=== PATIENT | male | born 1995 | race Caucasian/White ===

== ENCOUNTER 2024-06-04 06:35 | Outpatient (OUT) | payer BC, SELFPAY ==
[2024-06-04 07:07] LABS: Basophils Percent Auto 0.9 % (0.2-2.0); Eosinophils Absolute Auto 0.1 10^3/uL (0.0-0.7); Eosinophils Percent Auto 2.8 % (0.9-7.0); Hematocrit 45.3 % (42.0-54.0); Hemoglobin 15.1 g/dL (14.0-18.0); Lymphocytes Absolute Auto 1.2 10^3/uL (1.2-3.8); Lymphocytes Percent Auto 37.2 % (20.5-60.0); Mean Corpuscular HGB Conc 33.3 g/dL (29.9-35.2); Mean Corpuscular Hemoglobin 29.3 pg (25.9-34.0); Mean Platelet Volume 8.9 fL (9.5-13.5); Monocytes Absolute Auto 0.2 10^3/uL (0.3-0.8); Monocytes Percent Auto 7.1 % (1.7-12.0); Neutrophils Absolute Auto 1.7 10^3/uL (1.4-6.5); Platelet Count 240 10^3/uL (150-450); Red Blood Count 5.15 10^6/uL (4.70-6.10); Red Cell Distribution Width 13.1 % (11.0-15.0); White Blood Count 3.2 10^3/uL (4.0-11.0)
[2024-06-04 09:19] LABS: Percent Iron Saturation 23.7 %
[2024-06-04 09:28] LABS: Sodium 141 mmol/L (136-145)
[2024-06-04 09:29] LABS: Alanine Aminotransferase 38 U/L (16-63); Albumin Globulin Ratio 1.3; Albumin Level 4.1 g/dL (3.4-5.0); Alkaline Phosphatase 65 U/L (46-116); Anion Gap 9.2; Aspartate Amino Transferase 18 U/L (15-37); BUN Creatinine Ratio 14.4; Bilirubin Total 0.7 mg/dL (0.2-1.0); Calcium 9.2 mg/dL (8.5-10.1); Carbon Dioxide 31.9 mmol/L (21.0-32.0); Chloride 104 mmol/L (98-107); Estimated GFR (African America >60 (>=60 mL/min/1.73m^2); Estimated GFR (Non-African Ame >60 (>=60 mL/min/1.73m^2); Globulin 3.2 g/dL; Glucose 94 mg/dL (74-106); Potassium 4.1 mmol/L (3.5-5.1); TSH W/ REFLEX FT4 2.722 uIU/mL (0.358-3.740); Total Protein 7.3 g/dL (6.4-8.2)
== END 2024-06-04 06:36 | disposition home or self-care (01) ==
PROVIDERS: PCP Family Medicine; Visit Provider Nurse Practitioner Family
DX: R55 Syncope and collapse (principal)
CPT/HCPCS: 36415; 80053; 82728; 83540; 83550; 84443; 85025

== ENCOUNTER 2024-07-04 15:45 | Outpatient (OUT) | payer BC, SELFPAY ==
[2024-07-04 16:01] LABS: Basophils Percent Auto 0.3 % (0.2-2.0); Eosinophils Percent Auto 0.5 % (0.9-7.0); Immature Granulocytes Abs Auto 0.01 10^3/uL (0.00-0.03); Immature Granulocytes Pct Auto 0.1 % (0.0-0.5); Lymphocytes Percent Auto 11.2 % (20.5-60.0); Mean Corpuscular HGB Conc 34.1 g/dL (29.9-35.2); Mean Corpuscular Hemoglobin 29.8 pg (25.9-34.0); Mean Corpuscular Volume 87.3 fL (80.0-94.0); Mean Platelet Volume 8.9 fL (9.5-13.5); Monocytes Absolute Auto 0.5 10^3/uL (0.3-0.8); Monocytes Percent Auto 5.7 % (1.7-12.0); Neutrophils Absolute Auto 7.2 10^3/uL (1.4-6.5); Neutrophils Percent Auto 82.2 % (43.0-75.0); Platelet Count 269 10^3/uL (150-450); Red Blood Count 5.04 10^6/uL (4.70-6.10); Red Cell Distribution Width 12.7 % (11.0-15.0); White Blood Count 8.8 10^3/uL (4.0-11.0)
--- OUTSIDE RECORDS SUMMARY | 2024-07-04 16:06 | XMS_ITS | CCD ---
Author Organization [facility] Care Team Providers Care Digital Content Coordinator Name Role Phone DR NELSY RIOS Primary Care Unavailable CHASE BARKER Admitting Unavailable CHASE BARKER Attending Unavailable IRIS GALAN Consulting Unavailable Pat Joy Unavailable Nelsy Rios Unavailable Medications Completed/Discontinued Medications Medication Drug Class(es) Dates Sig (Normalized) Sig (Original) triamcinolone acetonide 40 mg/ml injectable suspension (1 source) Corticosteroid Start: 08-04-2022 Kenalog-40 July, 60 mg Problems Active Problems Problem Classification Problem Date Documented Da te Episodic/Chronic E Codes: Other specified and classifiable (1 source) Caught, crushed, jammed, or pinched between moving objects, initial encounter; Translations: [CAUGHT CRUSH/PINCH BTWN MOV OBJ INT] Onset: 09-09-2021 Episodic Immunizations and screening for infectious disease (2 sources) Encounter for immunization; Translations: [Contact with and (suspected) exposure to other viral communicable diseases] Onset: 01-06-2021 Resolved: 01-06-2021 Episodic Open wounds of extremities (4 sources) Laceration without foreign body of left middle finger without damage to nail, initial encounter; Translations: [LAC W/O FB LT MF W/O DMG NAIL INIT] Onset: 09-07-2021 Episodic Other connective tissue disease (1 source) Pain in left finger(s); Translations: [PAIN IN LEFT FINGERS] Onset: 09-09-2021 Episodic Other upper respiratory disease (1 source) Seasonal allergic rhinitis; Translations: [Other seasonal allergic rhinitis] Chronic Other upper respiratory disease (1 source) Other seasonal allergic rhinitis Chronic Past or Other Problems Problem Classification Problem Date Documented Da te Episodic/Chronic Other upper respiratory disease (1 source) Other specified disorders of nose and nasal sinuses; Translations: [Rhinorrhea J34.89] Onset: 01-06-2021 Resolved: 01-06-2021 Episodic Other upper respiratory infections (1 source) Acute upper respiratory infection, unspecified; Translations: [Viral upper respiratory illness J06.9] Onset: 01-06-2021 Resolved: 01-06-2021 Episodic Results Test Name Value Interpretation Reference Range Facil ity COVID Quick Testingon 2020 Result Negative Located Within [facility] Pr [employer] Other RSVon 01-06-2021 RSV Ag IA Ql (Unsp spec) Negative Located Within [facility] Prof [employer] Other Vital Signs Date Time Vital Sign Value Performing Clinician Facility 01-06-2021 11:45-0400 Body height 187.96 cm Pat Cummingsmond Other [facility] Other 01-06-2021 11:45-0400 Body mass index (BMI) [Ratio] 21.82 kg/m2 Pat Benita Other [facility] Other 01-06-2021 11:45-0400 Body temperature 101 [degF] Pat Benita Other [facility] Other 01-06-2021 11:45-0400 Body weight 77.11 kg Pat Cummingsmond Other [facility] Other 01-06-2021 11:45-0400 Respiratory rate 18 /min Pat Benita Other [facility] Other 01-06-2021 11:45-0400 SaO2% (BldA) [Mass fraction] 96 % Pat Benita Other [facility] Other Encounters Encounter Date Encounter Type Care Provider Facility Start: 07-19-2023 End: 07-19-2023 [facility] Work Phone: Start: 07-19-2023 End: 07-19-2023 Patient encounter procedure [facility] Work Phone: Start: 08-04-2022 End: 08-04-2022 ambulatory Nelsy Rios Other [facility] Other Start: 08-04-2022 Nursing evaluation o f patient and report Nelsy Rios [facility] Start: 09-07-2021 End: 09-07-[address] NELSY RIOS Facility: Start: 01-06-2021 (URG) Urgent Care Visit Pat castañeda [facility] [place] Immunizations Immunization Date Immunization Notes Care Provider Myrna perez 01-28-2014 tetanus and diphther ia toxoids, adsorbed, preservative free, for adult use (5 Lf of tetanus toxoid and 2 Lf of diphtheria toxoid) [facility] 01-14-2013 tetanus and diphther ia toxoids, adsorbed, preservative free, for adult use (5 Lf of tetanus toxoid and 2 Lf of diphtheria toxoid) [facility] Payers Date Payer Category Payer Unknown [id number] 1959 Unknown [id number] 1959 Unknown [id number] Self-pay Self Pay [id number] Social History Date Type Detail Facility Unknown if ever smoked [facility] Other Sex Assigned At Sex Assigned At Bir th [facility] Other Start: 11-23-2018 Tobacco smoking status NHIS Never smoked tobacco (finding) [facility] Start: 1995 Sex Assigned At Male F [facility] Evaluation note 08-04-2022 Note Date & Type Note Facility 08-04-2022 Evaluation note Encounter Date Diagnosis Assessment Notes July, Seasonal allergic rhinitis, unspecified trigger (ICD-10 - J30.2) [facility] Other Evaluation note 01-06-2021 Note Date & Type Note Facility 01-06-2021 Evaluation note Encounter Date Diagnosis Assessment Notes Dec, Contact with and (suspected) exposure to other viral communicable diseases (ICD-10 - Z20.828) Dec, Viral upper respiratory illness (ICD-10 - J06.9) Drink plenty fluids, get plenty of rest. Take Tylenol Motrin for aches pains or fevers. Follow-up with your family physician for a PCR Covid test if no improvement in 1 to 2 days. Dec, Rhinorrhea (ICD-10 - J34.89) Dec, Other Additional time spent conducting pre-visit phone call, screening for symptoms, instructions on social distancing, application and removal of PPE, and cleaning of examination room, equipment and supplies was preformed. Patient education given for testing methodology and results. Patient care instructions given in writting by [facility] document. [facility] Other Evaluation note Note Date & Type Note Facility Evaluation note No assessment information availa [facility] Work Phone: History general Narrative - Reported Note Date & Type Note Facility History general Narrative - Reported Type Surgical History pyloric stenosis Located Within [facility] [employer] Other Summary Purpose Family History No Family History Records Found Advance Directives Advance Directive Response Recorded Date/ Time Advance Directives No November 23, 2018 1:05pm Chief Complaint and Reason for Visit Chief Complaint allergy shot Additional Source Comments (unrecognized sect ion and content) No Status Records Found INFORMATION SOURCE (unrecogn ized section and content) DATE CREATED AUTHOR 09/09/2021 [facility] REASON FOR VISIT (unrecogniz ed section and content) #8 [facility] TERAIN, CONGESTION, S ORE THROAT, COUGH, H/Aallergy shot Care Teams (unrecognized sec tion and content) Team Status: Active Member Role Status Dates PHYSICIAN NO FAMILY Primary Care Provider Active Team Status: Inactive Member Role Status Dates PHYSICIAN NO FAMILY Primary Care Provider Active Start: July 19, 2023 End: July 19, 2023 Annalisa Charlton APRN [employer]PRESENTATIVE-[employer] Attending Provider Act samantha Start: July 19, 2023 End: July 19, 2023 Goals (unrecognized section and content) Goals may be documented in a n alternate section FOR RECORDS PERTAINING TO PATIENTS WHO ARE OR HAVE BEEN ENROLLED IN A CHEMICAL DEPENDENCY/SUBSTANCEABUSE PROGRAM, SOME INFORMATION MAY BE OMITTED. This clinical summary was aggregated from multiple sources. Caution should be exercised in using it in the provision of clinical care. This summary normalizes information from multiple sources, and as a consequence, information in this document may materially change the coding, format and clinical context of patient data. In addition, data may be omitted in some cases. CLINICAL DECISIONS SHOULD BE BASED ON THE PRIMARY CLINICAL RECORDS. [facility] [employer] [facility]. provides no warranty or guarantee of the accuracy or completeness of information in this document.
== END 2024-07-04 15:46 | disposition home or self-care (01) ==
PROVIDERS: PCP Family Medicine; Visit Provider Nurse Practitioner Family
DX: R79.89 Other specified abnormal findings of blood chemistry (principal)
CPT/HCPCS: 36415; 85025

== ENCOUNTER 2024-10-16 20:59 | Emergency (ER) | payer BC, SELFPAY ==
[2024-10-16 21:06] VITALS: BP 121/64; PULSE 69; TEMP 36.2; O2SAT 98; BMI 21.8
--- NOTE | 2024-10-16 21:30 | ED_ITS ---
HPI - Wound/Laceration General Chief Complaint: Wound/Laceration Stated Complaint: CUT RIGHT MIDDLE FINGER Time Seen by Provider: 10/16/24 21:28 Source: patient Mode of arrival: walk-in Limitations: no limitations History of Present Illness HPI narrative: This 29-year-old male who is right-hand dominant presents for evaluation of a laceration to his right middle finger on the palmar surface. The laceration is approximately 1 cm on the palmar surface of the MCP. There is no numbness or tingling in his finger. His last tetanus shot was in 2021. No additional injuries or complaints. Related Data Allergies Allergy/AdvReac Type Severity Reaction Status Date / Time No Known Drug Allergies Allergy Verified 10/16/24 21:10 Review of Systems ROS Narrative Vital signs and Nursing Notes reviewed: Patient is afebrile with a normal pulse, normal blood pressure, he is not hypoxic with pulse ox of 98% on room air General: Awake, alert, oriented, no acute distress, lying comfortably on the stretcher HEENT: Normocephalic atraumatic Chest: Lungs are clear to auscultation with good air entry, there is no wheezing rhonchi or rales appreciated no accessory muscle use, patient is speaking in complete sentences-no chest wall tenderness to palpation CVS: Regular rate and rhythm S1-S2, no murmurs rubs or gallops, pulses are brisk and equal bilaterally Extremities: There is an approximately 1 cm laceration to the palmar surface of the right middle finger at the MCP joint. Strength and sensation is intact. No active bleeding noted. Skin: Normal in appearance without rash,pallor, petechiae or purpura Neuro: No focal deficits PFSH PFSH Social History Little interest or pleasure in doing things: not at all Feeling down, depressed, or hopeless: not at all Exam Constitutional Vital Signs, click to edit/add: Last Vital Signs Temp 97.1 F L 10/16/24 21:06 Pulse 69 10/16/24 21:06 Resp 16 10/16/24 21:06 BP 121/64 10/16/24 21:06 Pulse Ox 98 10/16/24 21:06 Course Vital Signs Vital signs: Vital Signs Temperature 97.1 F L 10/16/24 21:06 Pulse Rate 69 10/16/24 21:06 Respiratory Rate 16 10/16/24 21:06 Blood Pressure 121/64 10/16/24 21:06 Pulse Oximetry 98 10/16/24 21:06 Temperature 97.1 F L 10/16/24 21:06 Pulse Rate 69 10/16/24 21:06 Respiratory Rate 16 10/16/24 21:06 Blood Pressure 121/64 10/16/24 21:06 Pulse Oximetry 98 10/16/24 21:06 Discharge Plan Discharge Chief Complaint: Wound/Laceration Clinical Impression: Laceration Patient Disposition: Home, Self-Care Time of Disposition Decision: 22:12 Condition: Good Print Language: [place] Instructions: Care For Your Stitches (ED), Laceration (ED) Additional Instructions: Sutures can be removed in 10 to 12 days. Keep your hand covered with a Band-Aid or other topical dressing. Use bacitracin once or twice daily when changing the Band-Aid. Return to the emergency department for redness, swelling, fever, streaks up your arms or any concerns. Referrals: Nelsy Rios MD [Primary Care Provider, Family Practice] - 1 week Procedures ED Procedure Instructions Procedures Procedures: Procedure note: Laceration repair; the patient's hand was soaked in warm water with Hibiclens, wound edges were infiltrated with 1% lidocaine. When anesthesia was obtained, 3, 3-0 Ethilon sutures were placed into the laceration with good wound edge approximation. Patient tolerated procedure well and a bacitracin dressing was applied by the nursing staff.
[2024-10-16] MEDS: BACITRACIN 0.9 GM PACKET 1 PACKET TOPICAL (21:50)
[2024-10-16] MEDS: LIDOCAINE HCL 1% 100 MG/10 ML MDV INJ (21:50)
--- OUTSIDE RECORDS SUMMARY | 2024-10-16 22:04 | XMS_ITS | CCD ---
Author Organization [facility] Inform ion Partnership [facility] Care Team Providers [facility] Attendant Name Role Phone DR NELSY RIOS Primary Care Unavailable CHASE BARKER Admitting Unavailable HCASE BARKER Attending Unavailable IRIS GALAN Consulting Unavailable Pat Joy Unavailable Nelsy Rios Unavailable Nelsy Rios MD Primary Care Provider Shravan Reyna MD Attending Provider Nelsy iRos MD Primary Care Provider Annalisa [place] APRN Attending Provider Rosette Pedro APRN Attending Provider Shravan Reyna MD Attending Provider Nelsy Rios MD Attending Provider Shravan Reyna Admitting Cristel Reyna, Shravan Keane Attending Nelsy Brown Primary Care Unavailable Shravan Reyna Admitting Cristel Reyna, Shravan Keane Attending Nelsy Brown Primary Care Unavailable Medications Current Medications Medication Drug Class(es) Dates Sig (Normalized) Sig (Original) [place] (No Known Home Meds) (3 sources) Start: 08-01-2024 [place] (No Known Home Meds) Active August 01, 2024 12:00am Completed/Discontinued Medications Medication Drug Class(es) Dates Sig (Normalized) Sig (Original) amoxicillin 500 mg oral capsule (4 sources) Penicillin-class Antibacterial Start: 06-16-2024 End: 07-07-2024 take 1 capsule by mouth every twelve hours Amoxicillin 500 mg capsule Discontinued 500 MG PO Every 12 hours 13 01June 16, 2024 12:00am July 07, 2024 1:53pm cefdinir 300 mg oral capsule (4 sources) Cephalosporin Antibacterial Start: 07-07-2024 End: 07-19-2024 take 1 capsule by mouth every twelve hours Cefdinir 300 mg capsule Discontinued 300 MG PO Every 12 hours 13 01July 07, 2024 12:00am July 19, 2024 9:48am triamcinolone acetonide 40 mg/ml injectable suspension (1 [...] (1 source) Other seasonal allergic rhinitis Chronic Other upper respiratory disease (4 sources) Allergic rhinitis; Translations: [Allergic rhinitis, unspecified] 08-02-2024 Chronic Other upper respiratory disease (2 sources) Allergic rhinitis, unspecified; Translations: [Allergic rhinitis, cause unspecified] 08-02-2024 Chronic Other upper respiratory infections (12 sources) Acute upper respiratory infection, unspecified; Translations: [Streptococcal sore throat] Onset: 01-06-2021 Resolved: 01-06-2021 Episodic Syncope (15 sources) Syncope; Translations: [Syncope and collapse] Onset: 07-19-2024 06-03-2024 Episodic Past or Other Problems Problem Classification Problem Date Documented Da te Episodic/Chronic Other upper respiratory disease (1 source) Other specified disorders of nose and nasal sinuses; Translations: [Rhinorrhea J34.89] Onset: 01-06-2021 Resolved: 01-06-2021 Episodic Results Test Name Value Interpretation Reference Range Facility [facility] echo transthoracicon [facility] echo transthoracic [facility] [place] [address] Echocardiogram Signed Patient: Rachelle Arellano MR#: [id number] 56 : 1995 Acct:[id number] Age/Sex: 29 / M ADM Date: 08/30/24 Loc: Room: Type: [facility] Attending Dr: Shravan Reyna MD Ordering Provider: Shravan Reyna MD Date of Service: 08/30/2409/19/947 [facility] echo transthoracic: R55 - Syncope and collapse Copies to: Shravan Reyna MD G Patient Location: : 1995 Gender: Male (MM/DD/YYYY) Age: 29 Years Ordering Physician: Shravan Reyna Height: 74 in Weight: 170.003 lb Performed By: BELLA Singh BSA: 2.03 m2 BP: 136 / 82 mmHg HR: 53 bpm Reason For Study: R55 - Syncope and collapse History: COVID + + Interpretation Summary Ejection Fraction = 55-60%. The left ventricular size and thickness are normal. The left ventricular wall motion is normal. A variety of Doppler measurements indicate normal left ventricular diastolic function. There is trace tricuspid regurgitation. There is no comparison study available. Procedure/Quality: A two-dimensional transthoracic echocardiogram was performed. The study was technically good in quality. Left Ventricle: The left ventricular size and thickness are normal. Ejection Fraction = 55-60%. A variety of Doppler measurements indicate normal left ventricular diastolic function. The left ventricular wall motion is normal. Left Atrium: The left atrium appears normal in size. Right Atrium: The right atrium appears normal in size. Right Ventricle: The right ventricle is normal in size and function. Aortic Valve: The aortic valve is normal in structure. No hemodynamically significant valvular aortic stenosis. No aortic regurgitation is present. Mitral Valve: The mitral valve is normal in structure. No significant mitral valve stenosis. There is no mitral regurgitation noted. Tricuspid Valve: The tricuspid valve is normal in structure. There is trace tricuspid regurgitation. Pulmonic Valve: The pulmonic valve is not well visualized. Trace pulmonic valvular regurgitation. Arteries: The aortic root is normal size. Pericardium/Pleura: No pericardial effusion seen. IVC/Hepatic Veins: Mildly dilated inferior vena cava. MMode/2D Measurements Calculations IVSd (0.7-1.1 cm): 0.83 cm LVIDd (3.7-5.4 cm): 5.1 cm LVPWd (0.7-1.1 cm): 0.96 cm LVIDs (2.3-3.6 cm): 3.0 cm LA dimension (2.3-4.0 cm): 2.6 Ao root diam (2.0-3.2 cm): 3.0 cm cm FS: 41.9 % Ao root area: 7.3 cm2 EDV(Teich): 122.7 ml LAV(MOD-sp2): 25.8 ml ESV(Teich): 33.7 ml LAV(MOD-sp4): 22.1 ml EF(Teich): 72.6 % LA A2 area: 12.3 cm2 LA A4 area: 13.1 cm2 LA length (vol): 5.5 cm LA vol: 25.1 ml LA vol index: 12.4 ml/m2 Doppler Measurements Calculations MV E max laina: 87.8 cm/sec Ao V2 max: 130.3 cm/sec MV A max laina: 62.1 cm/sec Ao max P.8 mmHg MR max laina: 278.9 cm/sec Ao mean P.3 mmHg MV V2 VTI: 40.8 cm Ao V2 mean: 85.7 cm/sec MV P1/2t: 86.7 msec Ao V2 VTI: 27.4 cm MV dec time: 0.30 sec MV dec slope: 363.8 cm/sec?? E/E' lat: 4.2 E/E' med: 6.0 TV max P.0 mmHg LV V1 max: 98.1 cm/sec TR max laina: 285.0 cm/sec LV V1 max P.9 mmHg TR max P.5 mmHg LV V1 mean: 65.3 cm/sec RAP systole: 10.0 mmHg LV V1 mean P.97 mmHg LV V1 VTI: 20.9 cm + + + + + --------+ + : Electronically : : signed by: Shravan : : : : Maribell : : : : on: 08/31/2024, : : : : 2:58 PM : + --------+ + Transcribed By: SCV Performed At: 08/30/24 0173 Signed By: Shravan Reyna MD 08/31/24 1458 Normal [facility] FPG ECG *CARDIOLOGY ONLY*on 07-19-2024 FPG ECG *CARDIOLOGY ONLY* [facility] [address] [place] [address] Electrocardiograph Report Signed Patient: Rachelle Arellano MR#: [id number] 56 : 1995 Acct:[id number] Age/Sex: 29 / M ADM Date: 07/19/24 Loc: EKGCARDIO Room: Type: [facility] Attending Dr: Shravan Reyna MD Ordering Provider: Shravan Reyna MD Date of Service: 07/19/24 ECG/FPG ECG *CARDIOLOGY ONLY*: R55 - Syncope and collapse Copies to: Test Reason : Blood Pressure : */* mmHG Vent. Rate : 61 BPM Atrial Rate : 61 BPM P-R Int : 142 ms QRS Dur : 114 ms QT Int : 388 ms P-R-T Axes : 40 67 54 degrees QTcB Int : 390 ms Normal sinus rhythm with sinus arrhythmia Incomplete right bundle branch block Borderline ECG No previous ECGs available Confirmed by Shravan Reyna ([id number]) on 07/19/2024 11:45:55 AM Referred By: Electronically Signed By: Shravan Reyna Transcribed By: MUS Signed By Shravan Reyna MD 07/19/24 1145 Normal [facility] No Panel InformationOrdered By: Rosette Pedro on 07-07-2024 Quick Strep (POC) [facility] Basophils Auto (Bld) [#/Vol] on 07-04-2024 Basophils (Bld) [#/Vol] Automated basophil count 0.0-0.1 [facility] Basophils (Bld) [#/Vol] 0.0 10 3/uL 0.0-0.1 [facility] Basophils/100 WBC Auto (Bld) on 07-04-2024 Basophils/100 WBC (Bld) Automated basophil % 0.2-2.0 [facility] Basophils/100 WBC (Bld) 0.3 % 0.2-2.0 [facility] Eosinophils/100 WBC Auto (Bl d)on 07-04-2024 Eosinophils/100 WBC (Bld) Automated eosinophil % Low 0.9-7.0 [facility] Eosinophils/100 WBC (Bld) 0.5 % Low 0.9-7.0 [facility] Erythrocyte distribution wid th Auto (RBC) [Ratio]on 07-04-2024 Erythrocyte distribution width (RBC) [Ratio] Erythrocyte distribution width [Ratio] by Automated count 11.0-15.0 [facility] Erythrocyte distribution width (RBC) [Ratio] 12.7 % 11.0-15.0 [facility] Hematocrit Auto (Bld) [Volum e fraction]on 07-04-2024 Hematocrit (Bld) [Volume fraction] Hematocrit [Volume Fraction] of Blood by Automated count 42.0-54.0 [facility] Hematocrit (Bld) [Volume fraction] 44.0 % 42.0-54.0 [facility] Hemoglobin [Mass/volume] in Bloodon 07-04-2024 Hemoglobin (Bld) [Mass/Vol] Hemoglobin [Mass/volume] in Blood 14.0-18.0 [facility] Hemoglobin (Bld) [Mass/Vol] 15.0 g/dL 14.0-18.0 [facility] Laboratory - Hematology and Cell countson 07-04-2024 Immature granulocytes/100 WBC (Bld) 0.1 % 0.0-0.5 [facility] Leukocytes [#/volume] correc natasha for nucleated erythrocytes in Blood by Automated counon 07-04-2024 WBC corrected for nucl RBC Auto (Bld) [#/Vol] Leukocytes [#/volume] corrected for nucleated erythrocytes in Blood by Automated coun .0-11.0 [facility] WBC corrected for nucl RBC Auto (Bld) [#/Vol] 8.8 10 3/uL 4.0-11.0 [facility] Lymphocytes Auto (Bld) [#/Vo l]on 07-04-2024 Lymphocytes (Bld) [#/Vol] Lymphocytes [#/volume] in Blood by Automated count Low 1.2-3.8 [facility] Lymphocytes (Bld) [#/Vol] 1.0 10 3/uL Low 1.2-3.8 [facility] Lymphocytes/100 WBC Auto (Bl d)on 07-04-2024 Lymphocytes/100 WBC (Bld) Lymphocytes/100 leukocytes in Blood by Automated count Low 20.5-60.0 [facility] Lymphocytes/100 WBC (Bld) 11.2 % Low 20.5-60.0 [facility] MCH Auto (RBC) [Entitic mass ]on 07-04-2024 MCH (RBC) [Entitic mass] MCH [Entitic mass] by Automated count 25.9-34.0 [facility] MCH (RBC) [Entitic mass] 29.8 pg 25.9-34.0 [facility] MCHC Auto (RBC) [Mass/Vol]on 07-04-2024 MCHC (RBC) [Mass/Vol] MCHC [Mass/volume] by Automated count 29.9-35.2 [facility] MCHC (RBC) [Mass/Vol] 34.1 g/dL 29.9-35.2 [facility] MCV Auto (RBC) [Entitic vol] on 07-04-2024 MCV (RBC) [Entitic vol] MCV [Entitic volume] by Automated count 80.0-94.0 [facility] MCV (RBC) [Entitic vol] 87.3 fL 80.0-94.0 [facility] Monocytes Auto (Bld) [#/Vol] on 07-04-2024 Monocytes (Bld) [#/Vol] Automated blood monocyte count 0.3-0.8 [facility] Monocytes (Bld) [#/Vol] 0.5 10 3/uL 0.3-0.8 [facility] Monocytes/100 WBC Auto (Bld) on 07-04-2024 Monocytes/100 WBC (Bld) Automated monocyte % 1.7-12.0 [facility] Monocytes/100 WBC (Bld) 5.7 % 1.7-12.0 [facility] Neutrophils Auto (Bld) [#/Vo l]on 07-04-2024 Neutrophils (Bld) [#/Vol] Neutrophils [#/volume] in Blood by Automated count High 1.4-6.5 [facility] Neutrophils (Bld) [#/Vol] 7.2 10 3/uL High 1.4-6.5 [facility] Neutrophils/100 WBC Auto (Bl d)on 07-04-2024 Neutrophils/100 WBC (Bld) Automated neutrophil % High 43.0-75.0 [facility] Neutrophils/100 WBC (Bld) 82.2 % High 43.0-75.0 [facility] No Panel Informationon 07-04 Eosinophils # (Auto) 0.0 10 3/uL 0.0-0.7 [facility] Immature Granulocyte # (Auto) 0.01 10 3/uL 0.00-0.03 [facility] Platelet mean volume Auto (B ld) [Entitic vol]on 07-04-2024 Platelet mean volume (Bld) [Entitic vol] Platelet mean volume [Entitic volume] in Blood by Automated count Low 9.5-13.5 [facility] Platelet mean volume (Bld) [Entitic vol] 8.9 fL Low 9.5-13.5 [facility] Platelets Auto (Bld) [#/Vol] on 07-04-2024 Platelets (Bld) [#/Vol] Platelets [#/volume] in Blood by Automated count 150-450 [facility] Platelets (Bld) [#/Vol] 269 10 3/uL 150-450 [facility] RBC Auto (Bld) [#/Vol]on RBC (Bld) [#/Vol] Erythrocytes [#/volume] in Blood by Automated count 4.70-6.10 [facility] RBC (Bld) [#/Vol] 5.04 10 6/uL 4.70-6.[address] [facility] No Panel InformationOrdered By: Kaley Coyne on 06-16-2024 Quick Strep (POC) [facility] Basophils Auto (Bld) [#/Vol] on 06-04-2024 Basophils (Bld) [#/Vol] Automated basophil count 0.0-0.1 [facility] Basophils/100 WBC Auto (Bld) on 06-04-2024 Basophils/100 WBC (Bld) Automated basophil % 0.2-2.0 [facility] Eosinophils/100 WBC Auto (Bl d)on 06-04-2024 Eosinophils/100 WBC (Bld) Automated eosinophil % 0.9-7.0 [facility] Erythrocyte distribution wid th Auto (RBC) [Ratio]on 06-04-2024 Erythrocyte distribution width (RBC) [Ratio] Erythrocyte distribution width [Ratio] by Automated count 11.0-15.0 [facility] Estimated glomerular filtrat ion rate (GFR) non- Americanon 06-04-2024 GFR/1.73 sq M.predicted among non-blacks MDRD (S/P/Bld) [Vol rate/Area] Estimated glomerular filtration rate (GFR) non- >=60 mL/min/1.73m 2 [facility] Globulin Calc (S) [Mass/Vol] on 06-04-2024 Globulin (S) [Mass/Vol] Serum globulin measurement by calculation (mass/volume) [facility] Hematocrit Auto (Bld) [Volum e fraction]on 06-04-2024 Hematocrit (Bld) [Volume fraction] Hematocrit [Volume Fraction] of Blood by Automated count 42.0-54.0 [facility] Hemoglobin [Mass/volume] in Bloodon 06-04-2024 Hemoglobin (Bld) [Mass/Vol] Hemoglobin [Mass/volume] in Blood 14.0-18.0 [facility] Iron binding capacity [Mass/ volume] in Serum or Plasmaon 06-04-2024 Iron binding capacity [Mass/Vol] Iron binding capacity [Mass/volume] in Serum or Plasma 250.0-450.0 [facility] Iron saturation [Mass Fracti on] in Serum or Plasmaon 06-04-2024 Iron saturation [Mass fraction] Iron saturation [Mass Fraction] in Serum or Plasma [facility] Laboratory - Chemistry and C hemistry - challengeon 06-04-2024 Albumin [Mass/Vol] 4.1 g/dL 3.4-5.0 [facility] ALP [Catalytic activity/Vol] 65 U/L 46-116 [facility] ALT [Catalytic activity/Vol] 38 U/L 16-63 [facility] AST [Catalytic activity/Vol] 18 U/L 15-37 [facility] Bilirubin [Mass/Vol] 0.7 mg/dL 0.2-1.0 [facility] Calcium [Mass/Vol] 9.2 mg/dL 8.5-10.1 [facility] Chloride [Moles/Vol] 104 mmol/L 98-107 [facility] CO2 [Moles/Vol] 31.9 mmol/L 21.0-32.0 [facility] Creatinine [Mass/Vol] 0.90 mg/dL 0.70-1.30 [facility] Ferritin [Mass/Vol] 42.0 ng/mL 26.0-388.[address] [facility] GFR/1.73 sq M.predicted MDRD (S/P/Bld) [Vol rate/Area] mL/min/{1.73_m2} >=60 mL/min/1.73m 2 [facility] Glucose [Mass/Vol] 94 mg/dL 74-106 [facility] Iron [Mass/Vol] 88.0 ug/dL 65.0-175.0 [facility] Potassium [Moles/Vol] 4.1 mmol/L 3.5-5.1 [facility] Protein [Mass/Vol] 7.3 g/dL 6.4-8.2 [facility] Sodium [Moles/Vol] 141 mmol/L 136-145 [facility] TSH Qn 2.722 m[IU]/L 0.358-3.740 [facility] Urea nitrogen [Mass/Vol] 13.0 mg/dL 7.0-18.0 [facility] Urea nitrogen/Creatinine [Mass ratio] 14.4 mg/mg [facility] Laboratory - Hematology and Cell countson 06-04-2024 Immature granulocytes/100 WBC (Bld) 0.0 % 0.0-0.5 [facility] Leukocytes [#/volume] correc natasha for nucleated erythrocytes in Blood by Automated counon 06-04-2024 WBC corrected for nucl RBC Auto (Bld) [#/Vol] Leukocytes [#/volume] corrected for nucleated erythrocytes in Blood by Automated coun Low 4.0-11.0 [facility] Lymphocytes Auto (Bld) [#/Vo l]on 06-04-2024 Lymphocytes (Bld) [#/Vol] Lymphocytes [#/volume] in Blood by Automated count 1.2-3.8 [facility] Lymphocytes/100 WBC Auto (Bl d)on 06-04-2024 Lymphocytes/100 WBC (Bld) Lymphocytes/100 leukocytes in Blood by Automated count 20.5-60.0 [facility] MCH Auto (RBC) [Entitic mass ]on 06-04-2024 MCH (RBC) [Entitic mass] MCH [Entitic mass] by Automated count 25.9-34.0 [facility] MCHC Auto (RBC) [Mass/Vol]on 06-04-2024 MCHC (RBC) [Mass/Vol] MCHC [Mass/volume] by Automated count 29.9-35.2 [facility] MCV Auto (RBC) [Entitic vol] on 06-04-2024 MCV (RBC) [Entitic vol] MCV [Entitic volume] by Automated count 80.0-94.0 [facility] Monocytes Auto (Bld) [#/Vol] on 06-04-2024 Monocytes (Bld) [#/Vol] Automated blood monocyte count Low 0.3-0.8 [facility] Monocytes/100 WBC Auto (Bld) on 06-04-2024 Monocytes/100 WBC (Bld) Automated monocyte % 1.7-12.0 [facility] Neutrophils Auto (Bld) [#/Vo l]on 06-04-2024 Neutrophils (Bld) [#/Vol] Neutrophils [#/volume] in Blood by Automated count 1.4-6.5 [facility] Neutrophils/100 WBC Auto (Bl d)on 06-04-2024 Neutrophils/100 WBC (Bld) Automated neutrophil % 43.0-75.0 [facility] No Panel Informationon 06-04 Eosinophils # (Auto) 0.1 10 3/uL 0.0-0.7 [facility] Immature Granulocyte # (Auto) 0.00 10 3/uL 0.00-0.03 [facility] Platelet mean volume Auto (B ld) [Entitic vol]on 06-04-2024 Platelet mean volume (Bld) [Entitic vol] Platelet mean volume [Entitic volume] in Blood by Automated count Low 9.5-13.5 [facility] Platelets Auto (Bld) [#/Vol] on 06-04-2024 Platelets (Bld) [#/Vol] Platelets [#/volume] in Blood by Automated count 150-450 [facility] RBC Auto (Bld) [#/Vol]on RBC (Bld) [#/Vol] Erythrocytes [#/volume] in Blood by Automated count 4.70-6.10 [facility] Serum or plasma albumin/glob ulin mass ratioon 06-04-2024 Albumin/Globulin [Mass ratio] Serum or plasma albumin/globulin mass ratio [facility] Serum or plasma anion gap de terminationon 06-04-2024 Anion gap [Moles/Vol] Serum or plasma anion gap determination [facility] COVID Quick Testingon 2020 Result Negative [employer] [facility] [employer] Other RSVon 01-06-2021 RSV Ag IA Ql (Unsp spec) Negative [facility] [employer] Other Vital Signs Date Time Vital Sign Value Performing Clinician Facility 09-26-2024 16:04-0400 Body height 185.42 cm Nelsy Rios MD Work Phone: [facility] 09-26-2024 16:04-0400 Body mass index (BMI) [Ratio] 21.6 kg/m2 Nelsy Rios MD Work Phone: [facility] 09-26-2024 16:04-0400 Body weight 74.38 kg Nelsy Rios MD Work Phone: [facility] 09-26-2024 16:04-0400 Diastolic blood pressure 74 mm[Hg] Nelsy Rios MD Work Phone: [facility] 09-26-2024 16:04-0400 Heart rate 78 /min Nelsy Rios MD Work Phone: [facility] 09-26-2024 16:04-0400 Respiratory rate 16 /min Nelsy Rios MD Work Phone: [facility] 09-26-2024 16:04-0400 SaO2% (BldA) [Mass fraction] 97 % Nelsy Rios MD Work Phone: [facility] 09-26-2024 16:04-0400 Systolic blood pressure 128 mm[Hg] Nelsy Rios MD Work Phone: [facility] 08-02-2024 08:40-0400 Body height 185.42 cm Nelsy Rios MD Work Phone: [facility] 08-02-2024 08:40-0400 Body mass index (BMI) [Ratio] 23.1 kg/m2 Nelsy Rios MD Work Phone: [facility] 08-02-2024 08:40-0400 Body weight 79.54 kg Nelsy Rios MD Work Phone: [facility] 08-02-2024 08:40-0400 Diastolic blood pressure 82 mm[Hg] Nelsy Rios MD Work Phone: [facility] 08-02-2024 08:40-0400 Heart rate 93 /min Nelsy Rios MD Work Phone: [facility] 08-02-2024 08:40-0400 Systolic blood pressure 127 mm[Hg] Nelsy Rios MD Work Phone: [facility] 07-19-2024 09:56-0400 Diastolic blood pressure 78 mm[Hg] Nelsy Rios MD Work Phone: [facility] 07-19-2024 09:56-0400 Heart rate 54 /min Nelsy Rios MD Work Phone: [facility] 07-19-2024 09:56-0400 Systolic blood pressure 128 mm[Hg] Nelsy Rios MD Work Phone: [facility] 07-19-2024 09:54-0400 Body height 185.42 cm Nelsy Rios MD Work Phone: [facility] 07-19-2024 09:54-0400 Body mass index (BMI) [Ratio] 23.2 kg/m2 Nelsy Rios MD Work Phone: [facility] 07-19-2024 09:54-0400 Body weight 79.83 kg Nelsy Rios MD Work Phone: [facility] 07-19-2024 09:54-0400 Respiratory rate 18 /min Nelsy Rios MD Work Phone: [facility] 07-19-2024 09:54-0400 SaO2% (BldA) [Mass fraction] 98 % Nelsy Rios MD Work Phone: [facility] 07-07-2024 13:56-0400 Body height 187.96 cm Nelsy Rios MD Work Phone: [facility] 07-07-2024 13:56-0400 Body mass index (BMI) [Ratio] 22.1 kg/m2 Nelsy Rios MD Work Phone: [facility] 07-07-2024 13:56-0400 Body temperature 98.1 [degF] Nelsy Rios MD Work Phone: [facility] 07-07-2024 13:56-0400 Body weight 78.01 kg Nelsy Rios MD Work Phone: [facility] 07-07-2024 13:56-0400 Diastolic blood pressure 75 mm[Hg] Nelsy Rios MD Work Phone: [facility] 07-07-2024 13:56-0400 Heart rate 103 /min Nelsy Rios MD Work Phone: [facility] 07-07-2024 13:56-0400 Respiratory rate 18 /min Nelsy Rios MD Work Phone: [facility] 07-07-2024 13:56-0400 SaO2% (BldA) [Mass fraction] 95 % Nelsy Rios MD Work Phone: [facility] 07-07-2024 13:56-0400 Systolic blood pressure 119 mm[Hg] Nelsy Rios MD Work Phone: [facility] 06-16-2024 11:40-0400 Body height 187.96 cm Nelsy Rios MD Work Phone: [facility] 06-16-2024 11:40-0400 Body mass index (BMI) [Ratio] 22.1 kg/m2 Nelsy Rios MD Work Phone: [facility] 06-16-2024 11:40-0400 Body temperature 98.1 [degF] Nelsy Rios MD Work Phone: [facility] 06-16-2024 11:40-0400 Body weight 78.24 kg Nelsy Rios MD Work Phone: [facility] 06-16-2024 11:40-0400 Diastolic blood pressure 85 mm[Hg] Nelsy Rios MD Work Phone: [facility] 06-16-2024 11:40-0400 Heart rate 108 /min Nelsy Rios MD Work Phone: [facility] 06-16-2024 11:40-0400 Respiratory rate 16 /min Nelsy Rios MD Work Phone: [facility] 06-16-2024 11:40-0400 SaO2% (BldA) [Mass fraction] 97 % Nelsy Rios MD Work Phone: [facility] 06-16-2024 11:40-0400 Systolic blood pressure 131 mm[Hg] Nelsy Rios MD Work Phone: [facility] 06-03-2024 15:36-0400 Body height 187.96 cm Nelsy Rios MD Work Phone: [facility] 06-03-2024 15:36-0400 Body mass index (BMI) [Ratio] 22.9 kg/m2 Nelsy Rios MD Work Phone: [facility] 06-03-2024 15:36-0400 Body temperature 95.1 [degF] Nelsy Rios MD Work Phone: [facility] 06-03-2024 15:36-0400 Body weight 81.19 kg Nelsy Rios MD Work Phone: [facility] 06-03-2024 15:36-0400 Diastolic blood pressure 64 mm[Hg] Nelsy Rios MD Work Phone: [facility] 06-03-2024 15:36-0400 Heart rate 63 /min Nelsy Rios MD Work Phone: [facility] 06-03-2024 15:36-0400 SaO2% (BldA) [Mass fraction] 96 % Nelsy Rios MD Work Phone: [facility] 06-03-2024 15:36-0400 Systolic blood pressure 112 mm[Hg] Nelsy Rios MD Work Phone: [facility] 01-06-2021 11:45-0400 Body height 187.96 cm Pat Joy Other [employer] [facility] [employer] Other 01-06-2021 11:45-0400 Body mass index (BMI) [Ratio] 21.82 kg/m2 Pat Cummingsmond Other Robert Applebaum MD Other 01-06-2021 11:45-0400 Body temperature 101 [degF] Pat Joy Other Robert Applebaum MD Other 01-06-2021 11:45-0400 Body weight 77.11 kg Pat Joy Other Robert Applebaum MD Other 01-06-2021 11:45-0400 Respiratory rate 18 /min Pat Cmumingsmond Other Robert Applebaum MD Other 01-06-2021 11:45-0400 SaO2% (BldA) [Mass fraction] 96 % Pat Cummingsmond Other Robert Applebaum MD Other Encounters Encounter Date Encounter Type Care Provider Facility Start: 09-26-2024 End: 09-26-2024 ambulatory Nelsy Rios MD Work Phone: [facility] Work Phone: Start: 09-26-2024 End: 09-26-2024 Patient encounter procedure Shravan Reyna MD -[facility] Work Phone: Start: 08-30-2024 End: 08-30-2024 Patient encounter procedure Nelsy Rios MD Work Phone: [facility] Work Phone: Start: 08-30-2024 End: 08-30-2024 ambulatory Nelsy Rios MD Work Phone: [facility] Work Phone: Start: 08-02-2024 End: 08-02-2024 ambulatory Nelsy Rios MD Work Phone: [facility] Work Phone: Start: 08-02-2024 End: 08-02-2024 Encounter for general adult medical examination without abnormal findings Nelsy Rios MD Work Phone: [facility] Start: 08-02-2024 End: 08-02-2024 Patient encounter procedure Nelsy Rios MD Work Phone: [facility] Physician [facility] Work Phone: Start: 08-02-2024 End: 08-02-2024 Patient encounter status Nelsy Rios MD [facility] Start: 07-19-2024 End: 07-19-2024 ambulatory Nelsy Rios MD Work Phone: [facility] Work Phone: Start: 07-19-2024 End: 07-19-2024 Patient encounter procedure Nelsy Rios MD Work Phone: [facility] Physician [facility] Work Phone: Start: 07-07-2024 End: 07-07-2024 Patient encounter procedure Nelsy Rios MD Work Phone: [facility] Physician [facility] [place] Work Phone: Start: 07-04-2024 Non-patient / Non-visit Nelsy Rios MD Work Phone: [facility] Work Phone: Start: 06-16-2024 End: 06-16-2024 Patient encounter procedure Nelsy Rios MD Work Phone: [facility] [place] Work Phone: Start: 06-04-2024 Non-patient / Non-visit Nelsy Rios MD Work Phone: [facility] Work Phone: Start: 06-03-2024 End: 06-03-2024 Patient encounter procedure Nelsy Rios MD Work Phone: [facility] Work Phone: Start: 07-19-2023 End: 07-19-2023 ambulatory [facility] Work Phone: Start: 07-19-2023 End: 07-19-2023 Patient encounter procedure [facility] Work Phone: Start: 08-04-2022 End: 08-04-2022 ambulatory Nelsy Rios Other [facility] [employer] Other Start: 08-04-2022 Nursing evaluation o f patient and report Nelsy Rios [facility] Start: 09-07-2021 End: 09-07-[address] NELSY RIOS Facility: Start: 01-06-2021 (URG) Urgent Care Visit Pat castañeda [facility] [place] Procedures Date Procedure Procedure Detail Performing Clinician Start: 07-07-2024 Quick Strep (POC) Mare Rios MD Work Phone: Start: 06-16-2024 Quick Strep (POC) Mare Rios MD Work Phone: Plan of Treatment Date Care Activity Detail Author Comprehensive metabo lic 2000 panel - Serum or Plasma [facility] enter US Heart Transthoracic [facility] Immunizations Immunization Date Immunization Notes Care Provider Fa cility 01-28-2014 tetanus and diphther ia toxoids, adsorbed, preservative free, for adult use (5 Lf of tetanus toxoid and 2 Lf of diphtheria toxoid) [facility] 01-14-2013 tetanus and diphther ia toxoids, adsorbed, preservative free, for adult use (5 Lf of tetanus toxoid and 2 Lf of diphtheria toxoid) [facility] Payers Date Payer Category Payer Self-pay [id number] 1995 Unknown [id number] 1959 Unknown [id number] 1959 Unknown [id number] Unknown [id number] Unknown [id number] Social History Date Type Detail Facility Unknown if ever smoked Robert Applebaum MD Other Sex Assigned At Sex Assigned At Bir th Robert Applebaum MD Other Start: 11-23-2018 End: 07-17-2024 Tobacco smoking status NHIS Never smoked tobacco (finding) [facility] Start: 1995 Sex Assigned At Male F [facility] Start: 07-20-2024 End: 08-31-2024 Sex Male (finding) [facility] Evaluation note 07-07-2024 Note Date & Type Note Facility 07-07-2024 Evaluation note Diagnosis Onset Date Resolution Strep pharyngitis acute June 252024 1:50pm Episode of syncope acute July 19, 2024 9:31am Episode of syncope acute July h2024 8:39am Rhinitis, allergic acute July 8:39am Wellness examination acute August 02, 2024 8:39am Episode of syncope acute September 262024 3:53pm [facility] Work Phone: Evaluation note 06-03-2024 Note Date & Type Note Facility 06-03-2024 Evaluation note Diagnosis Onset Date Resolution Episode of syncope acute June 03, 2024 3:32pm Strep pharyngitis acute May 262024 11:34am Strep pharyngitis acute June 252024 1:50pm [facility] Work Phone: Evaluation note 06-03-2024 Note Date & Type Note Facility 06-03-2024 Evaluation note Diagnosis Onset Date Resolution Episode of syncope acute June 03, 2024 3:32pm Strep pharyngitis acute May 262024 11:34am Strep pharyngitis acute June 252024 1:50pm Episode of syncope acute July 19, 2024 9:31am Episode of syncope acute July h2024 8:39am Rhinitis, allergic acute July h2024 8:39am Wellness examination acute August 02, 2024 8:39am [facility] Work Phone: Evaluation note 08-04-2022 Note Date & Type Note Facility 08-04-2022 Evaluation note Encounter Date Diagnosis Assessment Notes July, Seasonal allergic rhinitis, unspecified trigger (ICD-10 - J30.2) Robert Applebaum MD Other Evaluation note 01-06-2021 Note Date & [...] Patient care instructions given in writting by [facility] document. Robert Applebaum MD Other Evaluation note Note Date & Type Note Facility Evaluation note No assessment information availa ble [facility] Work Phone: History general Narrative - Reported Note Date & Type Note Facility History general Narrative - Reported Type Surgical History pyloric stenosis [facility] [employer] Other Reason for referral (narrative) Note Date & Type Note Facility Reason for referral (narrative) No reason for referral information available [facility] Work Phone: Summary Purpose Family History No Family History Records Found Relationship Condition Age at Onset Recorded Date/T dorinda mother Family disruption due to estrangement Unk nown Advance Directives No Advanced Directives Records Found Advance Directive Response Recorded Date/ Time Advance Directives No November 23, 2018 1:05pm Advance Directive Response Recorded Date/ Time Advance Directives No July 17 3:17pm Chief Complaint and Reason for Visit Chief Complaint allergy shot Chief Complaint Admit Date fainting episode June 03, 2024 3:3 2pm Headache, sore throat, nausea/vomiting, body aches June 16, 2024 11:34am sore throat (was here 2weeks ago) July 07, 2024 1:50pm Syncope and collapse July 19, 2024 9: 31am Reason for Visit Admit Date Episode of syncope June 03, 2024 3:3 2pm Strep pharyngitis June 16, 2024 11: 34am Strep pharyngitis July 07, 2024 1:5 0pm Chief Complaint Admit Date fainting episode June 03, 2024 3:3 2pm Headache, sore throat, nausea/vomiting, body aches June 16, 2024 11:34am sore throat (was here 2weeks ago) July 07, 2024 1:50pm Syncope and collapse July 19, 2024 9: 31am R55 July 19, 2024 9:4 4am Wellness August 02, 2024 8:39am Reason for Visit Admit Date Episode of syncope June 03, 2024 3:3 2pm Strep pharyngitis June 16, 2024 11: 34am Strep pharyngitis July 07, 2024 1:5 0pm Episode of syncope July 19, 2024 9:3 1am Episode of syncope May 9th, 2025 8:39am Rhinitis, allergic August 02, 2024 8:39am Wellness examination August 02, 2024 8:39a m Chief Complaint Admit Date fainting episode June 03, 2024 3:3 2pm Headache, sore throat, nausea/vomiting, body aches June 16, 2024 11:34am sore throat (was here 2weeks ago) July 07, 2024 1:50pm Syncope and collapse July 19, 2024 9: 31am R55 July 19, 2024 9:4 4am Wellness August 02, 2024 8:39am R55 August 30, 2024 9:38a m Chief Complaint Admit Date sore throat (was here 2weeks ago) July 07, 2024 1:50pm Syncope and collapse July 19, 2024 9: 31am R55 July 19, 2024 9:4 4am Wellness August 02, 2024 8:39am R55 August 30, 2024 9:38a m 2 month f/u September 26, 2024 3:53p m Reason for Visit Admit Date Strep pharyngitis July 07, 2024 1:5 0pm Episode of syncope July 19, 2024 9:3 1am Episode of syncope August 02, 2024 8:39am Rhinitis, allergic August 02, 2024 8:39am Wellness examination August 02, 2024 8:39a m Episode of syncope September 26, 2024 3:53p m Additional Source Comments (unrecognized sect ion and content) No Status Records FoundNo Status Records Found INFORMATION SOURCE (unrecogn ized section and content) DATE CREATED AUTHOR 09/09/2021 [facility] DATE CREATED AUTHOR AUTHOR'S ORGANIZ ATION 10/06/2024 [facility] REASON FOR VISIT (unrecogniz ed section and content) #8 [facility] TERAIN, CONGESTION, S ORE THROAT, COUGH, H/Aallergy shot Care Teams (unrecognized sec tion and content) Team Status: Active Member Role Status Dates Nelsy Rios MD Primary Care Provider Active Team Status: Active Member Role Status Dates Nelsy Rios MD Primary Care Provider Active Start: July 04, 2024 Annalisa Charlton APRN GEODETIC SURVEYOR TECHNOLOGIST-C Attending Provider Act samantha Start: July 04, 2024 Team Status: Inactive Member Role Status Dates Nelsy Rios MD Primary Care Provider Active Start: July 07, 2024 End: July 07, 2024 Rosette Pedro APRN Attending Provider Active S tart: July 07, 2024 End: July 07, 2024 Team Status: Inactive Member Role Status Dates Nelsy Rios MD Primary Care Provider Active Start: July 19, 2024 End: July 19, 2024 Shravan Reyna MD Attending Provider Activ e Start: July 19, 2024 End: July 19, 2024 Team Status: Inactive Member Role Status Dates Nelsy Rios MD Primary Care Provider Active Start: August 02, 2024 End: August 02, 2024 Nelsy Rios MD Attending Provider Active St art: August 02, 2024 End: August 02, 2024 Team Status: Inactive Member Role Status Toan Rios MD Primary Care Provider Active Start: August 30, 2024 End: August 30, 2024 Shravan Reyna MD Attending Provider Activ e Start: August 30, 2024 End: August 30, 2024 Team Status: Inactive Member Role Status Dates Nelsy Rios MD Primary Care Provider Active Start: September 26, 2024 End: September 26, 2024 Shravan Reyna MD Attending Provider Activ e Start: September 26, 2024 End: September 26, 2024 Team Status: Active Member Role Status Dates PHYSICIAN NO FAMILY Primary Care Provider Active Team Status: Inactive Member Role Status Dates PHYSICIAN NO FAMILY Primary Care Provider Active Start: July 19, 2023 End: July 19, 2023 Annalisa Charlton APRN GEODETIC SURVEYOR TECHNOLOGIST-C Attending Provider Act samantha Start: July 19, 2023 End: July 19, 2023 Team Status: Inactive Member Role Status Dates Annalisa Charlton APRN GEODETIC SURVEYOR TECHNOLOGIST-C Attending Provider Act samantha Start: June 03, 2024 End: June 03, 2024 Nelsy Rios MD Primary Care Provider Active Start: June 03, 2024 End: June 03, 2024 Team Status: Active Member Role Status Dates Annalisa Charlton APRN GEODETIC SURVEYOR TECHNOLOGIST-C Primary Care Provider, Attending Provider Active Start: June 04, 2024 Team Status: Inactive Member Role Status Dates Nelsy Rios MD Primary Care Provider Active Start: June 16, 2024 End: June 16, 2024 Kaley Coyne APRN Attending Provider Active Start: June 16, 2024 End: June 16, 2024 Team Status: Inactive Member Role Status Dates Nelsy Rios MD Primary Care Provide r, Attending Provider Active Start: August 02, 2024 End: August 02, 2024 Goals (unrecognized section and content) Goals may [...] BE BASED ON THE PRIMARY CLINICAL RECORDS. [employer] [facility]. provides no warranty or guarantee of the accuracy or completeness of information in this document.
--- NOTE | 2024-10-16 22:24 | PC.NURSE ---
Bacitacin and bandaid placed over stitches
== END 2024-10-16 22:27 | disposition home or self-care (01) ==
PROVIDERS: Emergency Provider Emergency Medicine; PCP Family Medicine
DX: S61.212A Laceration without foreign body of right middle finger without damage to nail, initial encounter (principal); W26.8XXA Contact with other sharp object(s), not elsewhere classified, initial encounter
CPT/HCPCS: 12001; 99282